=== PATIENT | female | born 1940 | race Caucasian/White ===

== ENCOUNTER 2017-05-24 11:40 | Day surgery (SDC) | payer OTHER ==
[~2017-05-24] VITALS: Ht 160 cm; Wt 75.3 kg
[2017-05-24] MEDS ORDERED: OMEP20CA16 PO (12:34)
[2017-05-24] MEDS ORDERED: ISOS30TA5 PO (12:34)
[2017-05-24] MEDS ORDERED: TRHC5025 PO (12:34)
[2017-05-24] MEDS ORDERED: ALLO100T PO (12:34)
[2017-05-24] MEDS ORDERED: SLOMAG PO (12:34)
[2017-05-24] MEDS ORDERED: METO-429 PO (12:34)
[2017-05-24] MEDS ORDERED: ASPI81TA3 PO (12:34)
[2017-05-24] MEDS ORDERED: TRIF1TAB PO (12:34)
[2017-05-24] MEDS ORDERED: LOSA25TA5 PO (12:34)
[2017-05-24] MEDS ORDERED: ATOR40TA68 PO (12:34)
[2017-05-24] MEDS ORDERED: CARSR60 PO (12:34)
[2017-05-24 12:37] VITALS: Ht 160 cm; Wt 75.3 kg
[2017-05-24 13:15] VITALS: BP 149/72; PULSE 61; RESP 25
[2017-05-24] MEDS ORDERED: LIDOCAINE 100 MG SYRINGE ONE (13:18)
[2017-05-24] MEDS ORDERED: FENTAnyl 50 MCG/ML VIAL ONE (13:18)
[2017-05-24] MEDS ORDERED: EPHEDrine SULFATE 50 MG/5 ML SYG ONE (13:18)
[2017-05-24] MEDS ORDERED: PROPOFOL 40 ML ONE (13:18)
--- NOTE | 2017-05-24 14:03 | OPPN ---
Date/Time of Note Date/Time of Note DATE: 05/24/17 TIME: 14:00 Operative Report Preoperative Diagnosis Gastroesophageal acid reflux Postoperative Diagnosis Mild gastritis hiatus hernia Operation/Procedure Performed EGD biopsy of the stomach Surgeon see signature line certified pharmacist assistant None Second assist: Jerad Boss M.D. Anesthesia: MAC Estimated blood loss: none Transfusion Required none Specimen Random gastric biopsy Grafts/Implants none Complications none ANRDES SPANGLER MD May 24, 2017 14:03
--- NOTE | 2017-05-24 14:05 | OPPN ---
Date/Time of Note Date/Time of Note DATE: 05/24/17 TIME: 14:03 Due to very tortuous: I reached only up to ascending colon recommend barium enema as outpatient Operative Report Preoperative Diagnosis Screening colonoscopy Postoperative Diagnosis Very tortuous colon with diverticulosis unable to reach cecum Operation/Procedure Performed Colonoscopy up to ascending colon Surgeon see signature line assistant front end manager None Second assist: Jerad Boss M.D. Anesthesia: MAC Estimated blood loss: none Transfusion Required none Specimen No biopsy done Grafts/Implants none Complications none ANDRES SPANGLER MD May 24, 2017 14:05
--- NOTE | 2017-05-27 06:09 | GILP ---
DATE OF PROCEDURE: 05/24/2017 PREOPERATIVE DIAGNOSIS: Gastroesophageal acid reflux. POSTOPERATIVE DIAGNOSES: 1. Small hiatus hernia. 2. Mild gastritis. PROCEDURE DONE: Esophagogastroduodenoscopy, random gastric biopsy. ANESTHESIOLOGIST: Dr. Jerad Boss. DESCRIPTION OF PROCEDURE: After obtaining informed consent, the patient was monitored and sedated b y the anesthesiologist. Advanced the Olympus video upper endoscope easily into the esophagus, stoma ch and duodenum. Examination demonstrated small hiatus hernia, sliding type, and no esophagitis. S tomach was showing mild gastritis. Photography done. Biopsy randomly done to rule out H. pylori. Easily, I entered the duodenum. First and second part and duodenal bulb were normal. Scope was slo wly withdrawn. The patient had no complication. Plan will be to wait for biopsy report, follow up as outpatient, proceed with colonoscopy as planned on this patient. Dictated By: ANDRES TURK Conf#: [id number] DID#: [id number]
--- NOTE | 2017-05-27 06:10 | GILP ---
DATE OF PROCEDURE: 05/24/2017 PROCEDURE DONE: After EGD, proceeded to do colonoscopy. PREOPERATIVE DIAGNOSIS: Screening colonoscopy. The patient complained there is a mass-like feeling in the left upper abdomen. POSTOPERATIVE DIAGNOSIS: Very tortuous colon, reached only ascending colon. Ileocecal valve was se en from a distance but did not enter the cecum intubation-bailey. DESCRIPTION OF PROCEDURE: After EGD and biopsy, proceeded to sedate the patient, further sedation d one, monitoring also done by Dr. Jerad Boss, the anesthesiologist. Rectal exam done which was normal. Then, I advanced a pediatric Olympus video colonoscope to the le ally of the ascending colon. Unable to reach the cecum due to very tortuous left colon. In spite of attempt with compression of the abdomen, could not reach the cecum, but the ascending colon, transv erse colon, descending colon normal. Descending colon, sigmoid colon very tortuous, but no major ab normality except diverticulosis noted. Rectum is essentially normal, including by retroflexion. Due to tortuosity of the colon, I recommended barium enema to study the cecum and also she was advis ed to have a CT scan of the abdomen, which she has not done it yet, to make certain there is no retr operitoneal mass and/or intra-abdominal mass which she is going for the CT scan and after the above studies, she will follow up in my office. I have explained to the patient with a person interpreting by 2 anesthesiologists who speak this addie guage and the family by phone to the patient in detail. Dictated By: ANDRES TURK Conf#: [id number] DID#: [id number]
== END 2017-05-24 20:21 | disposition home or self-care (01) ==
LOC: GIL 11:40
PROVIDERS: ATTEND Internal Medicine
DX: Z12.11 Encounter for screening for malignant neoplasm of colon (principal); K63.89 Other specified diseases of intestine; K57.90 Diverticulosis of intestine, part unspecified, without perforation or abscess without bleeding; K44.9 Diaphragmatic hernia without obstruction or gangrene; K29.70 Gastritis, unspecified, without bleeding; I10 Essential (primary) hypertension; E11.9 Type 2 diabetes mellitus without complications; I25.10 Atherosclerotic heart disease of native coronary artery without angina pectoris; Z95.1 Presence of aortocoronary bypass graft
CPT/HCPCS: 43239; 45378; 88305; J2001; J3010; Z7610